=== PATIENT | female | born 1940 | race Caucasian/White ===

== ENCOUNTER 2017-01-24 08:08 | Day surgery (SDC) | payer OTHER ==
[2017-01-23 10:30] VITALS: BMI 27.3
[2017-01-24] MEDS ORDERED: PROPOFOL 20 ML ONE ×2 (08:23)
[2017-01-24 10:00] VITALS: TEMP 97.8
[2017-01-24 10:20] VITALS: BP 97/62; PULSE 66
--- NOTE | 2017-01-26 11:15 | PATH ---
Surgical Pathology Report Patient Name: ANTONIO SIMS [facility]. Rec. #: [id number] /Age/Gender: 1940 (Age: 77) / F Account: [id number] Location: [facility] Taken: 01/24/2017 Received: 01/24/2017 Reported: 01/26/2017 Physicians: Asim Ta M.D. Specimen(s) Received A: BX DISTAL RIGHT COLON B: BX RECTUM Clinical History History of polyps Polyp Final Diagnosis A. COLON, DISTAL RIGHT, BIOPSY: COLONIC POLYP WITH SERRATED ARCHITECTURE AND AREA CONSISTENT WITH SESSILE SERRATED POLYP. B. COLON, RECTUM, BIOPSY: HYPERPLASTIC POLYP. Comment: Sessile serrated polyps are not dysplastic (adenomatous). They share morphologic features with hyperplastic polyps and, in the past, have been referred to as such. However, recent studies indicate that they harbor BRAF mutations and may represent neoplastic precursors to a subset of sporadic, microsatellite unstable colon cancers. They are generally treated and followed similar to colonic adenomas. CRISSY Whitlock and [facility] 2010, 139(5):5298-9287. Electronically Signed Noah Garcia M.D. Gross Description A. Received in formalin, labeled "distal right colon" is a whitney, polypoid portion of soft tissue measuring 0.6 cm. in greatest dimension. The specimen is submitted in toto in one cassette. B. Received in formalin, labeled "rectum" are 2 whitney, irregular portions of soft tissue averaging 0.1 cm. in greatest dimension. The specimens are submitted in toto in one cassette. 01/25/2017 [facility]01/25/2017
== END 2017-01-24 10:25 | disposition home or self-care (01) ==
LOC: FASU-ENDO 08:08
PROVIDERS: ATTEND Internal Medicine Gastroenterology
PROC: 0DBK8ZX Excision of Ascending Colon, Via Natural or Artificial Opening Endoscopic, Diagnostic (ICD-10-PCS; principal; 2017-01-24 09:18)
PROC: 0DBP8ZX Excision of Rectum, Via Natural or Artificial Opening Endoscopic, Diagnostic (ICD-10-PCS; 2017-01-24 09:18)
DX: Z86.010 Personal history of colon polyps (principal); K57.30 Diverticulosis of large intestine without perforation or abscess without bleeding; K64.8 Other hemorrhoids; K63.5 Polyp of colon; D12.2 Benign neoplasm of ascending colon
CPT/HCPCS: 88305-TC